=== PATIENT | female | born 1970 | race African-American/Black ===

== ENCOUNTER 2019-12-04 17:56 | Emergency (ER) | payer OTHER, SELFPAY ==
[2019-12-04 18:06] VITALS: BP 138/91; PULSE 76; RESP 16; TEMP 36.8; O2SAT 100
--- NOTE | 2019-12-04 18:10 | ED.GENADULT ---
HPI - General Adult General Chief complaint: Wound/Laceration Stated complaint: possible spider bite Time Seen by Provider: 12/04/19 18:11 Source: patient Mode of arrival: ambulatory Limitations: no limitations Related Data Home Medications Medication Instructions Recorded Confirmed Vitamin D 12/04/19 ferrous sulfate 12/04/19 Allergies Allergy/AdvReac Type Severity Reaction Status Date / Time No Known Allergies Allergy Unverified 10/05/17 18:46 Review of Systems Review of Systems: Narrative: CONSTITUTIONAL: Denies fever, chills, or sweats. EYES: Denies visual changes, redness, or discharge. ENT: Denies rhinorrhea, congestion, sore throat, or otalgia. CARDIOVASCULAR: Denies chest pain, palpitations, or edema. RESPIRATORY: Denies cough or dyspnea. GASTROINTESTINAL: Denies abdominal pain, nausea, vomiting, or diarrhea. GENITOURINARY: Denies dysuria or hematuria. SKIN: Denies rash or itching. MUSCULOSKELETAL: Denies back pain, joint pain, or myalgia. NEUROLOGIC: Denies headache, numbness, or weakness. PSYCHIATRIC: Denies anxiety or depression. [facility] Past Medical History Medical History (Updated 12/04/19 @ 18:23 by ABRAHAM Roper) Anemia Hypothyroidism Family History Family History Father Hypertension Mother Hypertension Social History Social History Smoking status: Never smoker Alcohol intake: current Comments At the time of my signature I agree with nursing past medical history, surgical, social, and family history. There is no relevant family history pertinent to the presenting complaint. Exam Narrative: Exam Narrative: GENERAL: Well-appearing, well-nourished, and in no acute distress. HEAD: Normocephalic, atraumatic. EYES: PERRLA and EOMI. ENT: Nares clear, no rhinorrhea or epistaxis. Mucous membranes moist. NECK: Supple. No lymphadenopathy CHEST: Clear to auscultation. No respiratory distress. HEART: Regular rate and rhythm. No murmur heard. Normal peripheral pulses. ABDOMEN: Soft, nontender, nondistended, normal active bowel sounds. EXTREMITIES: Normal range of motion. No edema. SKIN: Warm, dry, no rash. NEURO: No focal deficits. Alert and oriented x3. Course Vital Signs Vital signs: Vital Signs Temperature 36.8 C 12/04/19 18:06 Pulse Rate 76 12/04/19 18:06 Respiratory Rate 16 12/04/19 18:06 Blood Pressure 138/91 H 12/04/19 18:06 Pulse Oximetry 100 12/04/19 18:06 Temperature 36.8 C 12/04/19 18:06 Pulse Rate 76 12/04/19 18:06 Respiratory Rate 16 12/04/19 18:06 Blood Pressure 138/91 H 12/04/19 18:06 Pulse Oximetry 100 12/04/19 18:06 Vital signs reviewed. The patient has been informed that they may have pre-hypertension or Hypertension based on a BP reading in the department. I recommend that the patient call the primary care provider listed on their discharge instructions or a physician of their choice this week to arrange follow up for further evaluation of possible pre-hypertension or Hypertension Medical Decision Making Differential Diagnosis Differential Diagnosis: Differential diagnosis: Abscess, cellulitis, hidradenitis, laceration, puncture wound. Vital Signs Vital Signs: Vital Signs Temperature 36.8 C 12/04/19 18:06 Pulse Rate 76 12/04/19 18:06 Respiratory Rate 16 12/04/19 18:06 Blood Pressure 138/91 H 12/04/19 18:06 Pulse Oximetry 100 12/04/19 18:06 Temperature 36.8 C 12/04/19 18:06 Pulse Rate 76 12/04/19 18:06 Respiratory Rate 16 12/04/19 18:06 Blood Pressure 138/91 H 12/04/19 18:06 Pulse Oximetry 100 12/04/19 18:06 Critical Care Time Critical Care Time Critical Care Time: No Discharge Plan Discharge Clinical Impression: Insect bite, Contact dermatitis Patient Disposition: Home, Self-Care Condition: Stable Instructions: Antibiotic Form, Contact Dermatitis (
== END 2019-12-04 18:26 | disposition home or self-care (01) ==
PROVIDERS: Emergency Provider Nurse Practitioner Family
DX: S00.86XA Insect bite (nonvenomous) of other part of head, initial encounter (principal); L25.9 Unspecified contact dermatitis, unspecified cause; W57.XXXA Bitten or stung by nonvenomous insect and other nonvenomous arthropods, initial encounter
CPT/HCPCS: 99213; G0463

== ENCOUNTER 2021-01-09 12:54 | Emergency (ER) | payer OTHER, SELFPAY ==
[2021-01-09 13:03] VITALS: BP 128/78; PULSE 73; RESP 16; TEMP 36.4; O2SAT 100
--- NOTE | 2021-01-09 13:36 | ED.LOWEXIN ---
HPI - Extremity Injury (Lower) General Chief Complaint: Extremity Injury, Lower Stated Complaint: Left leg swelling Time Seen by Provider: 01/09/21 13:23 Source: patient and RN notes reviewed Mode of arrival: ambulatory Limitations: no limitations History of Present Illness HPI Narrative: Patient presents today complaining of left ankle swelling and itching x1 week. Denies any injury or trauma. Patient reports pain only when she has been scratching a lot. States she has little bit of a rash to the lateral portion of her ankle, to her left arm, and right breast. She is unsure of the source. At baseline, she does have some swelling to her bilateral ankles that has been evaluated by her PCP and cardiology. She has not tried any OTC treatment prior to arrival. MD complaint: ankle injury Related Data Home Medications Medication Instructions Recorded Confirmed Vitamin D 12/04/19 ferrous sulfate 12/04/19 levothyroxine 01/09/21 Allergies Allergy/AdvReac Type Severity Reaction Status Date / Time No Known Allergies Allergy Unverified 10/05/17 18:46 Review of Systems Review of Systems: Narrative: CONSTITUTIONAL: Denies body aches, fever, chills, or sweats. EYES: Denies visual changes, redness, or discharge. ENT: Denies rhinorrhea, congestion, sore throat, or otalgia. CARDIOVASCULAR: Denies chest pain, palpitations, or edema. RESPIRATORY: Denies cough or dyspnea. GASTROINTESTINAL: Denies abdominal pain, nausea, vomiting, or diarrhea. GENITOURINARY: Denies dysuria or hematuria. SKIN: Denies wounds. + Left ankle swelling, itching and rash MUSCULOSKELETAL: Denies back pain, or myalgia. NEUROLOGIC: Denies headache, numbness, tingling, or weakness. PSYCH: Denies depression or anxiety. [facility] Past Medical History Medical History Anemia Hypothyroidism Family History Family History Father Hypertension Mother Hypertension Social History Social History Smoking status: Never smoker Alcohol intake: current Comments At time of signature, I have reviewed and agree with nursing past medical, surgical, social and family history unless otherwise noted. Please see nursing chart for further information. There is no relevant family history pertinent to the presenting complaint Exam Narrative: Exam Narrative: GENERAL: Well-appearing, well-nourished, and in no acute distress. HEAD: Normocephalic, atraumatic. EYES: EOMI. No redness or drainage. Conjunctivae normal. ENT: Mucous membranes pink and moist. NECK: Normal AROM. CHEST: No respiratory distress. EXTREMITIES: Left ankle: Moderate edema about the ankle has 1+ pitting. Mild tenderness with palpation. Patient has some superficial flaking of the skin to the lateral malleolus with an area approximately 3 x 3 cm round increased warmth and erythema. Distal sensation intact. Capillary refill normal. Pedal pulse normal. Full range of motion of the ankle. No red streaking noted. No induration noted. Negative Homans. No tenderness to the calf. Right ankle has mild to moderate edema as well. SKIN: Warm, dry, no rash. Capillary refill normal. Normal skin turgor. NEURO: No focal deficits. Alert and oriented x3. Gait steady. PSYCH: Normal affect. No signs of depression or anxiety. Course Vital Signs Vital signs: Vital Signs Temperature 97.5 F L 01/09/21 13:03 Pulse Rate 73 01/09/21 13:03 Respiratory Rate 16 01/09/21 13:03 Blood Pressure 128/78 01/09/21 13:03 Pulse Oximetry 100 01/09/21 13:03 Temperature 97.5 F L 01/09/21 13:03 Pulse Rate 73 01/09/21 13:03 Respiratory Rate 16 01/09/21 13:03 Blood Pressure 128/78 01/09/21 13:03 Pulse Oximetry 100 01/09/21 13:03 Reviewed. Pt has been instructed to follow up with her PCP regarding her elevate
== END 2021-01-09 13:44 | disposition home or self-care (01) ==
PROVIDERS: Emergency Provider Nurse Practitioner
DX: L03.116 Cellulitis of left lower limb (principal); E03.9 Hypothyroidism, unspecified
CPT/HCPCS: 99213; G0463

== ENCOUNTER 2021-04-15 16:33 | Outpatient (CLI) | payer OTHER, SELFPAY ==
--- NOTE | ~2021-04-15 | MM_ITS ---
EXAMINATION: MM screening [facility] BI [facility] HISTORY: Screening mammogram TECHNIQUE: Craniocaudal and mediolateral oblique 3-D tomosynthesis images were obtained and synthetic 2-D images were generated. CAD analysis was submitted and interpreted. COMPARISON: 06/28/2018, 03/16/2017, 06/16/2015, 05/28/2015 BREAST PARENCHYMAL COMPOSITION: The breasts are almost entirely fatty. FINDINGS: There is no evidence of suspicious mass, calcification, or architectural distortion to sugg est malignancy in either breast. There has been no suspicious interval change. IMPRESSION: 1. No mammographic evidence of malignancy. 2. Recommend routine screening mammography in one year. BI-RADS Category 1: Negative Reviewed, dictated and finalized at location A.
== END 2021-04-15 16:34 | disposition home or self-care (01) ==
LOC: ANHIMG 16:35
PROVIDERS: Visit Provider Nurse Practitioner Family
DX: Z12.31 Encounter for screening mammogram for malignant neoplasm of breast (principal)
CPT/HCPCS: 77063; 77067

== ENCOUNTER 2022-02-22 14:49 | Emergency (ER) | payer OTHER, SELFPAY ==
[2022-02-22 14:55] VITALS: BP 118/84; PULSE 70; RESP 16; TEMP 36.2; O2SAT 100
--- NOTE | 2022-02-22 15:06 | ED.UPPEXIN ---
HPI - Extremity Injury (Upper) General Chief Complaint: Extremity Injury, Upper Stated Complaint: Finger Pain Time Seen by Provider: 02/22/22 15:06 Source: patient Mode of arrival: ambulatory Limitations: no limitations History of Present Illness HPI narrative: 52-year-old female presents with complaint of redness, swelling, pain to right index finger. Reports that she has had symptoms for approximately 1 week after getting her nails done. States that while at the nail salon they caused her to bleed. She later remove the fake nail herself when pain started. Has not seen any drainage from nail. All systems reviewed and negative except as noted above. Related Data Allergies Allergy/AdvReac Type Severity Reaction Status Date / Time No Known Allergies Allergy Verified 02/22/22 15:02 Review of Systems Review of Systems: CONSTITUTIONAL: Denies fever, chills, or sweats. EYES: Denies visual changes, redness, or discharge. ENT: Denies rhinorrhea, congestion, sore throat, or otalgia. CARDIOVASCULAR: Denies chest pain, palpitations, or edema. RESPIRATORY: Denies cough or dyspnea. GASTROINTESTINAL: Denies abdominal pain, nausea, vomiting, or diarrhea. GENITOURINARY: Denies dysuria or hematuria. SKIN: Denies rash or itching. Reports redness, swelling, pain to right index finger. MUSCULOSKELETAL: Denies back pain, joint pain, or myalgia. NEUROLOGIC: Denies headache, numbness, or weakness. PSYCHIATRIC: Denies anxiety or depression. All other systems reviewed are negative, except as documented in HPI. PMFSH Past Medical History Medical History Anemia Hypothyroidism Family History Family History Father Hypertension Mother Hypertension Social History Social History Smoking status: Never smoker Alcohol intake: current Comments At time of signature, agree with nursing past medical, surgical, social and family history. There is no relevant family history pertinent to the presenting complaint. Exam Narrative: GENERAL: This is a well-nourished, well-developed patient, in no apparent distress. HEAD: normocephalic, atraumatic. EYES: PERRL. Sclera clear/white. Vision is grossly intact. EARS: External ears normal NOSE: External nose normal NECK: Neck supple, non-tender without lymphadenopathy, masses or thyromegaly. CARDIOVASCULAR: Regular rate and rhythm without murmurs, gallops, or rubs. RESPIRATORY: Clear to auscultation. Breath sounds equal bilaterally. No wheezes, rales, or rhonchi. SKIN: warm, Dry, intact with no suspicious lesions or rash, good texture and turgor. mild swelling distal aspect R index finger with erythema to cuticle. tender on palpation. No fluctuance concerning for abscess or paronychia. does not need I and D. NEURO: awake, alert, and oriented to person, place and time. There were no obvious focal neurologic abnormalities. EXTREMITIES: No joint tenderness, effusion, or edema noted. Course Course Level of Care: Express Care Visit Vital Signs Vital signs: Vital Signs Temperature 36.2 C L 02/22/22 14:55 Pulse Rate 70 02/22/22 14:55 Respiratory Rate 16 02/22/22 14:55 Blood Pressure 118/84 02/22/22 14:55 Pulse Oximetry 100 02/22/22 14:55 Oxygen Delivery Room Air 02/22/22 14:55 Temperature 36.2 C L 02/22/22 14:55 Pulse Rate 70 02/22/22 14:55 Respiratory Rate 16 02/22/22 14:55 Blood Pressure 118/84 02/22/22 14:55 Pulse Oximetry 100 02/22/22 14:55 Oxygen Delivery Room Air 02/22/22 14:55 Reviewed MDM - Extremity Injury (Upper) MDM Narrative Medical decision making narrative: Patient is aware of diagnosis, understands and agrees to treatment plan. Anticipatory guidance given. Patient agrees to follow-up as directed and is aware of reasons to seek care at the emergency departme
== END 2022-02-22 15:20 | disposition home or self-care (01) ==
PROVIDERS: Emergency Provider Nurse Practitioner Family
DX: L03.011 Cellulitis of right finger (principal); E03.9 Hypothyroidism, unspecified
CPT/HCPCS: 99213; G0463

== ENCOUNTER 2024-06-14 14:08 | Emergency (ER) | payer OTHER, SELFPAY ==
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
[2024-06-14 14:32] VITALS: BP 167/102; PULSE 75; RESP 18; TEMP 36.7; O2SAT 100
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
== END 2024-06-14 18:09 | disposition home or self-care (01) ==
PROVIDERS: Emergency Provider Preventive Medicine Aerospace Medicine
DX: S62.174A Nondisplaced fracture of trapezium [larger multangular], right wrist, initial encounter for closed fracture (principal); S13.4XXA Sprain of ligaments of cervical spine, initial encounter; E03.9 Hypothyroidism, unspecified; Z86.2 Personal history of diseases of the blood and blood-forming organs and certain disorders involving the immune mechanism; V47.5XXA Car driver injured in collision with fixed or stationary object in traffic accident, initial encounter
CPT/HCPCS: 29125; 70450; 72072; 72125; 73130; 99284

== ENCOUNTER 2024-11-26 08:04 | Emergency (ER) | payer SELFPAY ==
[2024-11-26 08:13] VITALS: BP 138/88; PULSE 62; RESP 16; TEMP 36.1; O2SAT 100
--- NOTE | 2024-11-26 08:15 | ED.ALLEREA ---
HPI - Allergic Reaction General Chief complaint: Allergic Reaction Stated complaint: Allergic Reaction Source: patient Mode of arrival: ambulatory Limitations: no limitations Related Data Allergies Allergy/AdvReac Type Severity Reaction Status Date / Time No Known Allergies Allergy Verified 11/26/24 08:09 Review of Systems Review of Systems: CONSTITUTIONAL: Denies body aches, fever, chills, or sweats. EYES: Denies visual changes, redness, or discharge. ENT: Denies rhinorrhea, congestion, sore throat, or otalgia. CARDIOVASCULAR: Denies chest pain, palpitations, or edema. RESPIRATORY: Denies cough or dyspnea. GASTROINTESTINAL: Denies abdominal pain, nausea, vomiting, or diarrhea. GENITOURINARY: Denies dysuria or hematuria. SKIN: Denies rash, itching, or wounds. MUSCULOSKELETAL: Denies back pain, joint pain, or myalgia. NEUROLOGIC: Denies headache, numbness, tingling, or weakness. PSYCH: Denies depression or anxiety. PMFSH Past Medical History Medical History Anemia Hypothyroidism Family History Family History Father Hypertension Mother Hypertension Social History Social History Smoking status: Never smoker Alcohol intake: current Comments At time of signature, I have reviewed and agree with nursing past medical, surgical, social and family history unless otherwise noted. Please see nursing chart for further information. There is no relevant family history pertinent to the presenting complaint. Exam Narrative: GENERAL: Well-appearing, well-nourished, and in no acute distress. HEAD: Normocephalic, atraumatic. EYES: EOMI. No redness or drainage. Conjunctivae normal. ENT: Mucous membranes pink and moist. No rhinorrhea. TMs normal bilaterally. Throat normal. Uvula midline. NECK: Normal AROM. Supple. No lymphadenopathy. CHEST: No respiratory distress. Clear to auscultation. HEART: Regular rate and rhythm. No murmur appreciated. Normal peripheral pulses. ABDOMEN: Soft, nontender, nondistended, normal active bowel sounds. MUSCULOSKELETAL: No bony tenderness. EXTREMITIES: Normal range of motion. No edema. SKIN: Warm, dry, no rash. Capillary refill normal. Normal skin turgor. NEURO: No focal deficits. Alert and oriented x3. Gait steady. PSYCH: Normal affect. No signs of depression or anxiety. Course Course Level of Care: Express Care Visit Vital Signs Vital signs: Vital Signs Temperature 96.9 F L 11/26/24 08:13 Pulse Rate 62 11/26/24 08:13 Respiratory Rate 16 11/26/24 08:13 Blood Pressure 138/88 11/26/24 08:13 Pulse Oximetry 100 11/26/24 08:13 Temperature 96.9 F L 11/26/24 08:13 Pulse Rate 62 11/26/24 08:13 Respiratory Rate 16 11/26/24 08:13 Blood Pressure 138/88 11/26/24 08:13 Pulse Oximetry 100 11/26/24 08:13 Review Critical Care Time Critical Care Time Critical Care Time: No Discharge Plan Discharge Patient Disposition: Home Condition: Stable Instructions: Antibiotic Form Patient Language: Icelandic Prescriptions: No Action cyclobenzaprine 10 mg tablet 10 mg PO BID PRN (Reason: muscle spasm) Qty: 10 0RF lidocaine 5 % adhesive patch,medicated 3 patch topical DAILY Qty: 30 0RF Rx Instructions: leave on most painful area for up to 12 hrs Follow-up/Referrals: Kyle Hargrove MD [Primary Care Provider] -
--- NOTE | 2024-11-26 08:20 | ED.SKABFB ---
HPI - Skin/Abscess/Foreign Bdy General Chief complaint: Skin/Abscess/Foreign Body Stated complaint: Allergic Reaction Source: patient Mode of arrival: ambulatory Limitations: no limitations History of Present Illness HPI narrative: Patient is a 54 year old female who presents to the clinic with complaints of swelling and itching to both of her eyes since yesterday. She states that mosquitos bit her. Denies any shortness of breath, vision changes, or difficulty swallowing. Related Data Allergies Allergy/AdvReac Type Severity Reaction Status Date / Time No Known Allergies Allergy Verified 11/26/24 08:09 Review of Systems Review of Systems: CONSTITUTIONAL: Denies body aches, fever, chills, or sweats. EYES: Denies visual changes, redness, or discharge. ENT: Denies rhinorrhea, congestion CARDIOVASCULAR: Denies chest pain, palpitations, or edema. RESPIRATORY: Denies cough or dyspnea. GASTROINTESTINAL: Denies abdominal pain, nausea, vomiting, or diarrhea. SKIN: Reports edema and itching to bilateral eyes. MUSCULOSKELETAL: Denies back pain, joint pain, or myalgia. NEUROLOGIC: Denies headache, numbness, tingling, or weakness. All systems reviewed & are unremarkable except as noted in HPI and below PMFSH Past Medical History Medical History Anemia Hypothyroidism Family History Family History Father Hypertension Mother Hypertension Social History Social History Smoking status: Never smoker Alcohol intake: current Comments At time of signature, I have reviewed and agree with nursing past medical, surgical, social and family history unless otherwise noted. Please see nursing chart for further information. There is no relevant family history pertinent to the presenting complaint. Exam Narrative: GENERAL: Well-appearing HEAD: Normocephalic, atraumatic. EYES: conjunctivae clear, and EOMI. ENT: Mucous membranes moist. Oropharynx without edema, erythema or lesions. NECK: Supple. No lymphadenopathy CHEST: Clear to auscultation. HEART: Regular rate and rhythm. SKIN: Warm, dry. Edema noted to periorbital of both eyes. No erythema. No ecchymosis. NEURO: Alert and oriented x3. Course Course Level of Care: Express Care Visit Vital Signs Vital signs: Vital Signs Temperature 96.9 F L 11/26/24 08:13 Pulse Rate 62 11/26/24 08:13 Respiratory Rate 16 11/26/24 08:13 Blood Pressure 138/88 11/26/24 08:13 Pulse Oximetry 100 11/26/24 08:13 Temperature 96.9 F L 11/26/24 08:13 Pulse Rate 62 11/26/24 08:13 Respiratory Rate 16 11/26/24 08:13 Blood Pressure 138/88 11/26/24 08:13 Pulse Oximetry 100 11/26/24 08:13 Reviewed MDM - Skin/Abscess/Foreign Bdy MDM Narrative Medical decision making narrative: Discussed physical exam findings. Prednisone given for edema. Advised supportive measures and signs/symptoms to go to the ER. Pt is appropriate for outpatient treatment and follow up. Differential Diagnosis Differential diagnosis: Likely insect bites and contact dermatitis Critical Care Time Critical Care Time Critical Care Time: No Discharge Plan Discharge Clinical Impression: Insect bites Patient Disposition: Home Condition: Stable Instructions: Insect Bite or Sting (ED) Additional Instructions: The most important part of your care is follow up with Primary care provider. Take Benadryl 25-50 mg every 8 hours for itching Take Claritin, Zyrtec, or Penny daily for the next 7 days Take Pepcid 20mg daily for 7 days Take the steroids starting today. Avoid hot showers, Take cool showers. Wash the area with gentle soap and water only. Use skin cream (Hydrocortisone) over the counter to reduce itchiness Avoid scratching when possible to prevent worsening of the condition and disruption of the skin that could lead to bacterial infection To relieve itching, place a cool washcloth or some ice over the area that itches, rather than scratching Follow up with primary care provider or seek ER if you have trouble breathing, become hoarse, or start wheezing, develop belly cramps, vomiting or feel dizzy. Patient Language: Gibraltarian Prescriptions: New prednisone 20 mg tablet See Rx Instructions .ROUTE .COMPLEX Qty: 9 0RF Rx Instructions: 40mg x 3 days, 20mg x 3 days No Action cyclobenzaprine 10 mg tablet 10 mg PO BID PRN (Reason: muscle spasm) Qty: 10 0RF lidocaine 5 % adhesive patch,medicated 3 patch topical DAILY Qty: 30 0RF Rx Instructions: leave on most painful area for up to 12 hrs Follow-up/Referrals: Kyle Hargrove MD [Primary Care Provider] - Time of Disposition: 08:34
== END 2024-11-26 08:40 | disposition home or self-care (01) ==
PROVIDERS: PCP Emergency Medicine
DX: T14.8XXA Other injury of unspecified body region, initial encounter (principal); W57.XXXA Bitten or stung by nonvenomous insect and other nonvenomous arthropods, initial encounter; E03.9 Hypothyroidism, unspecified
CPT/HCPCS: 99213; G0463

== ENCOUNTER 2025-01-08 11:01 | Emergency (ER) | payer SELFPAY ==
[2025-01-08 11:09] VITALS: BP 149/90; PULSE 81; RESP 20; TEMP 36.3; O2SAT 100
--- NOTE | 2025-01-08 11:48 | ED.SKABFB ---
HPI - Skin/Abscess/Foreign Bdy General Chief complaint: Skin/Abscess/Foreign Body Stated complaint: bite on leg Time Seen by Provider: 01/08/25 11:15 Source: patient and RN notes reviewed Mode of arrival: ambulatory Limitations: no limitations History of Present Illness HPI narrative: 55-year-old female presents Express Care complaining of possible insect bite to right lower leg. She says she knows that approximately 4-5 days ago. Patient is unsure if an insect or spider bit her. Patient reports the plate is mildly tender and is pruritic. Patient is not trending [id number] help with symptoms. Patient says there is redness surrounding the wound. Patient denies any fevers, body aches, chills, nausea, vomiting, any other symptoms. Patient denies any injury to her leg. Related Data Allergies Allergy/AdvReac Type Severity Reaction Status Date / Time No Known Allergies Allergy Verified 01/08/25 11:11 Review of Systems Review of Systems: CONSTITUTIONAL: Denies fever, chills, or sweats. EYES: Denies visual changes, redness, or discharge. ENT: Denies rhinorrhea, congestion, sore throat, or otalgia. CARDIOVASCULAR: Denies chest pain, palpitations, or edema. RESPIRATORY: Denies cough or dyspnea. GASTROINTESTINAL: Denies abdominal pain, nausea, vomiting, or diarrhea. GENITOURINARY: Denies dysuria or hematuria. SKIN: Denies rash or itching. Positive for wound. MUSCULOSKELETAL: Denies back pain, joint pain, or myalgia. NEUROLOGIC: Denies headache, numbness, or weakness. PSYCHIATRIC: Denies anxiety or depression. All other systems reviewed are negative, except as documented in HPI. [facility] Past Medical History Medical History Anemia Hypothyroidism Family History Family History Father Hypertension Mother Hypertension Social History Social History Smoking status: Never smoker Alcohol intake: current Comments At the time of my signature, I reviewed and agree with the nursing past medical, surgical, social, and family history. There is no relevant family history pertinent to the patient complaint. Exam Narrative: GENERAL: This is a well-nourished, well-developed adult, in no apparent distress. They are non ill-appearing, nontoxic appearing. HEAD: normocephalic, atraumatic. EYES: Sclera clear/white. Conjunctiva normal. Vision is grossly intact. Extraocular movements intact EARS: External ears normal, Hearing grossly intact. NOSE: External nose normal THROAT: Mucous membranes moist, NECK: Neck supple, CARDIOVASCULAR: Regular rate and rhythm RESPIRATORY: Respiratory rate normal, respiratory effort nonlabored, no respiratory distress SKIN: Right lower leg: There is a single pruritic circular macular papular wound measuring approximate 1.5 cm x 1.5 cm. No obvious puncture site. It is scaly and scabbed over in the center of the wound. Mild surrounding erythema. Wound is not hot to touch. Mild tenderness to palpation. No area fluctuance or induration. No exudate. NEURO: awake, alert, and oriented to person, place and time. There were no obvious focal neurologic abnormalities. EXTREMITIES: No joint tenderness, effusion, or edema noted. Course Course Emergency Course: Portions of this record may have been created with voice recognition software Level of Care: Express Care Visit Vital Signs Vital signs: Vital Signs Temperature 97.3 F L 01/08/25 11:09 Pulse Rate 81 01/08/25 11:09 Respiratory Rate 20 01/08/25 11:09 Blood Pressure 149/90 H 01/08/25 11:09 Pulse Oximetry 100 01/08/25 11:09 Oxygen Delivery Room Air 01/08/25 11:09 Temperature 97.3 F L 01/08/25 11:09 Pulse Rate 81 01/08/25 11:09 Respiratory Rate 20 01/08/25 11:09 Blood Pressure 149/90 H 01/08/25 11:09 Pulse Oximetry 100 01/08/25 11:09 Oxygen Delivery Room Air 01/08/25 11:09 Reviewed MDM - Skin/Abscess/Foreign Bdy MDM Narrative Medical decision making narrative: Likely patient has bug bite that is scabbed over. Patient admits she has been frequently scratching it. Given the surrounding erythema go ahead and prophylactically treat with cephalexin. Will Also prescribe triamcinolone cream to help with itchiness symptoms. Discussed physical exam findings. Advised supportive measures and signs/symptoms to go to the ER. Pt is appropriate for outpt treatment and f/u. Differential Diagnosis Differential diagnosis: Likely cellulitis, eczema, insect bites and impetigo Critical Care Time Critical Care Time Critical Care Time: No Discharge Plan Discharge Clinical Impression: Insect bites Qualifiers: Encounter type: initial encounter Site of insect bite: lower leg Laterality: right Qualified Code(s): S80.861A - Insect bite (nonvenomous), right lower leg, initial encounter Patient Disposition: Home Condition: Stable Instructions: Antibiotic Form, Insect Bite or Sting (ED) Additional Instructions: Take cephalexin as directed. Use the triamcinolone cream as directed. Clean with soap and water only; Avoid using alcohol and peroxide. Please keep the wound dry and covered. Please avoid scratching the area as this may increase the risk given infection. Tylenol or ibuprofen as needed for pain or fevers. Please schedule a follow up visit with your personal physician for further evaluation and treatment within 3-5days Please go to the ER if you developed worsening redness, swelling, pain, green/yellow discharge, red streaking, fevers, or any other concerns. Patient Language: Paraguayan Prescriptions: New triamcinolone acetonide 0.1 % cream 1 applic topical BID 5 Days Qty: 15 0RF Rx Instructions: Apply to the affected area cephalexin 500 mg capsule 500 mg PO Q6H 7 Days Qty: 28 0RF No Action cyclobenzaprine 10 mg tablet 10 mg PO BID PRN (Reason: muscle spasm) Qty: 10 0RF lidocaine 5 % adhesive patch,medicated 3 patch topical DAILY Qty: 30 0RF Rx Instructions: leave on most painful area for up to 12 hrs Follow-up/Referrals: PHYSICIAN,BLOCK BREAKER [Primary Care Provider] - Time of Disposition: 11:33
== END 2025-01-08 11:36 | disposition home or self-care (01) ==
DX: S80.861A Insect bite (nonvenomous), right lower leg, initial encounter (principal); W57.XXXA Bitten or stung by nonvenomous insect and other nonvenomous arthropods, initial encounter; E03.9 Hypothyroidism, unspecified
CPT/HCPCS: 99213; G0463